=== PATIENT | female | born 1985 | race Caucasian/White ===

== ENCOUNTER 2020-11-21 15:42 | Emergency (ER) | payer SELFPAY ==
[~2020-11-21] VITALS: Ht 149.9 cm; Wt 56.0 kg
[~2020-11-21 15:42] MED LIST: ACYC800T PO
[2020-11-21] MEDS ORDERED: KETOROLAC 30 MG/ML VIAL. IVP ONE (16:15)
--- NOTE | 2020-11-21 16:25 | PHYS DOC ---
Past History Past Medical History: No Pertinent History, Anxiety Past Surgical History: No Surgical History, Alcohol Use: None Drug Use: None General Adult EDM: Chief Complaint: ANXIETY/PANIC ATTACK HPI: HPI: Patient is a 35-year-old female who presents with headache, chest pain, shortness of breath. Patient states "I am having a panic attack". Patient was diagnosed with anxiety 5 months ago and has been having panic attacks weekly. Patient states that she was having problems at home when the anxiety started. Patient reports symptoms started at 1 PM today patient took ibuprofen at that time. Anxiety is patient's only history. Review of Systems: Review of Systems: Constitutional: Denies fever or chills Eyes: Denies change in visual acuity HENT: Denies nasal congestion or sore throat Respiratory: Denies cough or shortness of breath Cardiovascular: Denies chest pain or edema GI: Denies abdominal pain, nausea, vomiting, bloody stools or diarrhea : Denies dysuria Musculoskeletal: Denies back pain or joint pain Integument: Denies rash Neurologic: Denies headache, focal weakness or sensory changes Endocrine: Denies polyuria or polydipsia Lymphatic: Denies swollen glands Psychiatric: Denies depression or anxiety Allergies: Allergies: Allergies Coded Allergies Type Severity Reaction Last Updated Verified No Known Drug Allergies 01/27/16 No Physical Exam: PE: Constitutional: Well developed, well nourished, no acute distress, non-toxic appearance. [] HENT: Normocephalic, atraumatic, bilateral external ears normal, oropharynx moist, no oral exudates, nose normal. [] Eyes: PERRLA, EOMI, conjunctiva normal, no discharge. [] Neck: Normal range of motion, no tenderness, supple, no stridor. [] Cardiovascular:Heart rate regular rhythm, no murmur [] Lungs & Thorax: Bilateral breath sounds clear to auscultation [] Abdomen: Bowel sounds normal, soft, no tenderness, no masses, no pulsatile masses. [] Skin: Warm, dry, no erythema, no rash. [] Back: No tenderness, no CVA tenderness. [] Extremities: No tenderness, no cyanosis, no clubbing, ROM intact, no edema. [] Neurologic: Alert and oriented X 3, normal motor function, normal sensory function, no focal deficits noted. [] Psychologic: Affect normal, judgement normal, mood normal. [] Current Patient Data: Vital Signs: Vital Signs Date Time Temp Pulse Resp B/P (MAP) Pulse Ox O2 Delivery O2 Flow Rate FiO2 11/21/20 15:46 97.8 74 22 105/69 (81) 98 Room Air EKG: EKG: Sinus rhythm, normal EKG. Intervals normal. [place] normal. Heart rate 77 bpm. [] Radiology/Procedures: Radiology/Procedures: []INDICATION: Reason: Chest pain / Spl. Instructions: / History: COMPARISON: None. FINDINGS: Single view of chest obtained. No focal airspace consolidation. Cardiomediastinal contour unremarkable. No acute osseous abnormality. IMPRESSION: * No focal airspace consolidation or edema. Electronically signed by: Madi Ceja MD (11/21/2020 4:47 PM) [id number] Exam: CT head INDICATION: Headache TECHNIQUE: Sequential axial images through the head were obtained without the administration of IV contrast. Comparisons: None FINDINGS: No focal parenchymal lesion or hemorrhage is identified. There is no midline shift or sulcal effacement. No acute vascular territory infarction is identified. Malave-white distinction is preserved. The ventricular system is within normal limits without compression hydrocephalus. The basal cisterns are well maintained. The visualized portions of the paranasal sinuses and mastoid air cells are well- pneumatized. No acute fractures. IMPRESSION: No acute intracranial abnormality. Exposure: One or more of the following in the visualized dose reduction techniques were utilized for this examination: 1. Automated exposure control 2. Adjustment of the MA and/or KV according to patient size Use of iterative of reconstructive technique Electronically signed by: Aniket Park MD (11/21/2020 4:49 PM) [facility] Study: CT CHEST WITH CONTRAST - PULMONARY ANGIOGRAM History: Shortness of air. Chest pain. Pulmonary embolism. Comparison: None. Technique: Helical CT of the chest performed after the administration of 100 cc Omnipaque 350 intravenous contrast and timed for angiographic evaluation of the pulmonary arteries per PE protocol. Coronal and sagittal 3D MIP reformations were obtained. One or more of the following individualized dose reduction techniques were utilized for this examination: 1. Automated exposure control 2. Adjustment of the mA and/or kV according to patient size 3. Use of iterative reconstruction technique. Findings: Pulmonary Arteries: No main, lobar or segmental pulmonary embolism. Heart/Systemic Vasculature: Normal aortic caliber. No dissection. Unremarkable visualized great vessels. No findings of right heart strain. Mediastinum: Mild residual thymic tissue. No lymphadenopathy or pericardial effusion. Within normal limits esophagus. Lungs: No localized airspace infiltrate, concerning pulmonary nodule or pleural effusion. No pneumothorax. Patent central airways. Neck/Axilla/Body Wall: Unremarkable. Upper Abdomen: No acute abnormality. Bones: No acute or aggressive osseous process. Miscellaneous: None. IMPRESSION: No pulmonary embolism or other acute abnormality throughout the chest to explain the patient's symptoms. Electronically signed by: LINUS DYER MD (11/21/2020 6:19 PM) [facility] Heart Score: HEART Score for Chest Pain: HEART Score for Chest Pain Response (Comments) Value History Slighlty/Non-Suspicious 0 ECG Normal 0 Age < 45 0 Risk Factors No Risk Factors 0 Total 0 Risk Factors: Risk Factors: DM, Current or recent (<one month) smoker, HTN, HLP, family history of CAD, obesity. Risk Scores: Score 0 - 3: 2.5% MACE over next 6 weeks - Discharge Home Score 4 - 6: 20.3% MACE over next 6 weeks - Admit for Clinical Observation Score 7 - 10: 72.7% MACE over next 6 weeks - Early Invasive Strategies Course & Med Decision Making: Course & Med Decision Making Pertinent Labs and Imaging studies reviewed. (See chart for details) [] Patient is a 35-year-old female who presents with headache, chest pain, shortness of breath. Patient states "I am having a panic attack". Patient was diagnosed with anxiety 5 months ago and has been having panic attacks weekly. Patient states that she was having problems at home when the anxiety started. Patient reports symptoms started at 1 PM today patient took ibuprofen at that time. Anxiety is patient's only history. 1 of Ativan given for anxiety. Toradol given for pain. EKG shows sinus rhythm. Heart rate 77 bpm. Chest x-ray is negative for any acute abnormality. Head CT is negative. D-dimer is 1.88. CTA is ordered to rule out PE. CTA negative for PE. Troponin is negative. UA negative for infection. Patient discharged to home for panic attack. Patient is to follow back up with her primary care physician to manage her symptoms. Patient symptoms had resolved after Ativan. Patient is hemodynamically stable and able to ambulate on her own. Patient is instructed to return to emergency room with worsening symptoms or concerns. Jonathan Disclaimer: Jonathan Disclaimer: This electronic medical record was generated, in whole or in part, using a voice recognition dictation system. Departure Departure: Impression: Primary Impression: Anxiety Disposition: 01 DC HOME SELF CARE/HOMELESS Condition: STABLE Referrals: GEETA LOPEZ MD (PCP) Patient Instructions: Anxiety and Panic Attacks, [id number] Additional Instructions: You were seen in the emergency room today for a panic attack. You were given medication for anxiety in the emergency room which resolved your symptoms. Please follow-up with your PCP regarding management of your panic attacks and symptoms. Please return with worsening symptoms or concerns EMERGENCY DEPARTMENT GENERAL DISCHARGE INSTRUCTIONS Thank you for coming to [facility] (ED) today and trusting us with you care. We trust that you had a positivie experience in our Emergency Department. If you wish to speak to the department management, you may call the director at [phone]. YOUR FOLLOW UP INSTRUCTIONS ARE FOLLOWS: 1. Do you have a private Doctor? If you do not have a private doctor, please ask for a resource list of physicians or clinics that may be able to assist you with follow up care. 2. The Emergency Physician has interpreted your x-rays. The X-Ray specialist will also review them. If there is a change in the findings, you will be notified in 48 hours when at all possible. 3. A lab test or culture has been done, your results will be reviewed and you will be notified if you need a change in treatment. ADDITIONAL INSTRUCTIONS AND INFORMATION: 1. Your care today has been supervised by a physician who is specially trained in emergency care. Many problems require more than one evaluation for a complete diagnosis and treatment. We recommend that you schedule your follow up appointment as recommended to ensure complete treatment of you illness or injury. If you are unable to obtain follow up care and continue to have a problem, or if your condition worsens, we recommend that you return to the ED. 2. We are not able to safely determine your condition over the phone nor are we able to give sound medical advice over the phone. For these safety reasons, if you call for medical advice we will ask you to come to the ED for further evaluation. 3. If you have any questions regarding these discharge instructions please call the ED at [phone]. SAFETY INFORMATION: In the interest of safety, wellness, and injury prevention; we encourage you to wear your sealbelt, if you smoke; quite smoking, and we encourage family to use a protective helmet for bicycling and other sporting events that present an increased risk for head injury. IF YOUR SYMPTOMS WORSEN OR NEW SYMPTOMS DEVELOP, OR YOU HAVE CONCERNS ABOUT YOUR CONDITION; OR IF YOUR CONDITION WORSENS WHILE YOU ARE WAITING FOR YOUR FOLLOW UP APPOINTMENT; EITHER CONTACT YOUR PRIMARY CARE DOCTOR, THE PHYSICIAN WHOSE NAME AND NUMBER YOU WERE GIVEN, OR RETURN TO THE ED IMMEDIATELY. WILFRED STEPHENSON APRN Nov 21, 2020 16:25
[2020-11-21 16:46] LABS: BASO % 1 % (0-3); EOS # 0.1 x10^3/uL (0.0-0.7); EOS % 1 % (0-3); HEMATOCRIT 38.3 % (36.0-47.0); HEMOGLOBIN 12.8 g/dL (12.0-15.5); LYMPH % 27 % (24-48); MEAN CORPUSCULAR HEMOGLOBIN 30 pg (25-35); MEAN CORPUSCULAR HGB CONC 33 g/dL (31-37); MEAN CORPUSCULAR VOLUME 90 fL (79-100); MONO # 0.5 x10^3/uL (0.0-1.1); MONO % 6 % (0-9); NEUT % 66 % (31-73); PLATELET COUNT 288 x10^3/uL (140-400); RED BLOOD COUNT 4.26 x10^6/uL (3.50-5.40); RED CELL DISTRIBUTION WIDTH 13.4 % (11.5-14.5); WHITE BLOOD COUNT 7.6 x10^3/uL (4.0-11.0)
--- NOTE | 2020-11-21 16:49 | RAD ---
INDICATION: Reason: Chest pain / Spl. Instructions: / History: COMPARISON: None. FINDINGS: Single view of chest obtained. No focal airspace consolidation. Cardiomediastinal contour unremarkable. No acute osseous abnormality. IMPRESSION: * No focal airspace consolidation or edema. Electronically signed by: Madi Ceja MD (11/21/2020 4:47 PM) [id number]
--- NOTE | 2020-11-21 16:51 | RAD ---
Exam: CT head INDICATION: Headache TECHNIQUE: Sequential axial images through the head were obtained without the administration of IV co ntrast. Comparisons: None FINDINGS: No focal parenchymal lesion or hemorrhage is identified. There is no midline shift or sulcal effaceme nt. No acute vascular territory infarction is identified. Malave-white distinction is preserved. The ventricular system is within normal limits without compression hydrocephalus. The basal cisterns are well maintained. The visualized portions of the paranasal sinuses and mastoid air cells are well-pneumatized. No acute fractures. IMPRESSION: No acute intracranial abnormality. Exposure: One or more of the following in the visualized dose reduction techniques were utilized for this examination: 1. Automated exposure control 2. Adjustment of the MA and/or KV according to patient size Use of iterative of reconstructive technique Electronically signed by: Aniket Park MD (11/21/2020 4:49 PM) [facility]
[2020-11-21 17:00] LABS: CREATININE 0.6 mg/dL (0.6-1.0); GFR 114.4; POTASSIUM 3.4 mmol/L (3.5-5.1)
[2020-11-21 17:06] LABS: ALBUMIN 3.8 g/dL (3.4-5.0); ALBUMIN/GLOBULIN RATIO 0.9 (1.0-1.7); TOTAL BILIRUBIN 0.3 mg/dL (0.2-1.0); TOTAL PROTEIN 7.9 g/dL (6.4-8.2)
--- NOTE | 2020-11-21 17:09 | EKG ---
[address] [address] Test Date: 2020-11-21 Test Time: 16:28:41 Pat Name: DARLENE STRATTON Department: Room: Gender: [place] Program Technician: RANDOLPH : [id number] Requested By: WILFRED STEPHENSON Order Number: [id number] Reading MD: Measurements Intervals [place] Rate: 77 P: 19 [place]: 188 QRS: 10 QRSD: 92 T: 26 QT: 410 QTc: 466 Interpretive Statements SINUS RHYTHM NORMAL ECG RI6.02 No previous ECG available for comparison
[2020-11-21 17:45] VITALS: BP 102/65
[2020-11-21] MEDS ORDERED: IOHEXOL 350 MG/ML 100 ML VIAL. IV ONE (18:00)
[2020-11-21 18:20] LABS: CLARITY,URINE HAZY; COLOR,URINE YELLOW
[2020-11-21 18:21] LABS: AMORPHOUS SEDIMENT,UR PRESENT /HPF; BACTERIA,URINE 0 /HPF (0-FEW); BILIRUBIN,URINE NEG (NEG); GLUCOSE,URINE NEG (NEG); NITRITE,URINE NEG (NEG); RBC,URINE 0 /HPF (0-2); UROBILINOGEN,URINE 0.2 mg/dL (0.2 mg/dL); WBC,URINE 0 /HPF (0-4)
--- NOTE | 2020-11-21 18:22 | RAD ---
Study: CT CHEST WITH CONTRAST - PULMONARY ANGIOGRAM History: Shortness of air. Chest pain. Pulmonary embolism. Comparison: None. Technique: Helical CT of the chest performed after the administration of 100 cc Omnipaque 350 intrav enous contrast and timed for angiographic evaluation of the pulmonary arteries per PE protocol. Coron al and sagittal 3D MIP reformations were obtained. One or more of the following individualized dose reduction techniques were utilized for this examinat ion: 1. Automated exposure control 2. Adjustment of the mA and/or kV according to patient size 3. Use of iterative reconstruction technique. Findings: Pulmonary Arteries: No main, lobar or segmental pulmonary embolism. Heart/Systemic Vasculature: Normal aortic caliber. No dissection. Unremarkable visualized great vesse ls. No findings of right heart strain. Mediastinum: Mild residual thymic tissue. No lymphadenopathy or pericardial effusion. Within normal l imits esophagus. Lungs: No localized airspace infiltrate, concerning pulmonary nodule or pleural effusion. No pneumoth orax. Patent central airways. Neck/Axilla/Body Wall: Unremarkable. Upper Abdomen: No acute abnormality. Bones: No acute or aggressive osseous process. Miscellaneous: None. IMPRESSION: No pulmonary embolism or other acute abnormality throughout the chest to explain the patient's sympto ms. Electronically signed by: LINUS DYER MD (11/21/2020 6:19 PM) [facility]
== END 2020-11-21 18:36 | disposition home or self-care (01) ==
LOC: ER 15:42
DX: F41.9 Anxiety disorder, unspecified (principal); R07.89 Other chest pain; R06.02 Shortness of breath; R51.9 Headache, unspecified; Z98.890 Other specified postprocedural states
CPT/HCPCS: 36415; 70450; 71045; 71275; 80053; 81001; 84484; 85025; 85379; 93005; 96374; 96375; 99285; J1885; J2060; Q9967